=== PATIENT | female | born 1975 | race Caucasian/White ===

== ENCOUNTER 2018-06-09 07:26 | Day surgery (SDC) | payer OTHER ==
[~2018-06-09] VITALS: Ht 160 cm; Wt 64.0 kg
[~2018-06-09 07:26] MED LIST: ALBUTEROL SULF8.5 GM INH; CELEXA40 MG PO; CIPRO500 MG PO; DETROL LA4 MG PO; ESTRACE1 MG PO; FLUTICASONE PRO16 GM NASAL; HCTZ25 MG PO; HYDROCODON-ACE1 EAC7 PO; NEURONTIN 300300 MG; PHENERGAN25 M1 PO; POTASSIUM CHLORIDE E PO; PROTONIX40 MG PO; SINGULAIR10 MG PO; SPIRIVA RESPIMAT4 G1 INH; SYMBICORT 16010.2 GM INH
[2018-06-09 07:59] LABS: CALC OSMOLALITY 280 mosm/kg (275-300); CALCIUM 8.6 mg/dL (8.5-10.1); CARBON DIOXIDE 27.7 mmol/L (21.0-32.0); CHLORIDE - SERUM 101 mmol/L (98-107); CREATININE - SERUM 0.7 mg/dL (0.6-1.3); GLUCOSE 108 mg/dL (74-106); POTASSIUM - SERUM 3.7 mmol/L (3.5-5.1); SODIUM 138 mmol/L (136-145); UREA NITROGEN 23 mg/dL (7-18); eGFR NON AFRICAN AMERICAN > 90 mL/min (90-120)
[2018-06-09 08:30] VITALS: BP 112/76; Ht 160 cm; Wt 64.0 kg
[2018-06-09 08:34] LABS: APPEARANCE HAZY (CLEAR); BILIRUBIN NEGATIVE (NEGATIVE); COLOR YELLOW (YELLOW); GLUCOSE NEGATIVE (NEGATIVE); KETONE NEGATIVE (NEGATIVE); NITRITE NEGATIVE (NEGATIVE); PROTEIN NEGATIVE (NEGATIVE); SPECIFIC GRAVITY 1.015 (1.005-1.020)
[2018-06-09 08:37] LABS: HEMATOCRIT 44.8 % (36.0-48.0); HEMOGLOBIN 15.8 g/dL (12-16); MCH 32.6 pg (26.0-34.0); MCHC 35.3 g/dL (31.0-37.0); MCV 92.4 fL (80.0-100.0); MEAN PLATELET VOLUME 10.8 fL (7.4-10.4); RBC 4.85 10x6/uL (4.00-5.40); RDW 12.9 % (11.5-14.5); WBC 6.9 10x3/uL (4.8-10.8)
--- NOTE | 2018-06-09 13:16 | NUR ---
DC INSTRUCTIONS GIVEN TO PT/FAMILY. STATE UNDERSTANDING. DC'D IV CATH FULLY INTACT. PT LEFT UNIT VIA WC AT 1233
--- NOTE | 2018-06-23 08:45 | OP ---
PATIENT NAME: YONI HERNANDEZ MEDICAL RECORD: [id number] :79 LOCATION:[facility] ADMISSION DATE: SURGEON: MAUDE VAUGHAN MD DATE OF OPERATION: 06/09/2018 PREOPERATIVE DIAGNOSIS: Displaced nasal fracture. POSTOPERATIVE DIAGNOSIS: Displaced nasal fracture. PROCEDURE: Closed reduction of nasal fracture. SURGEON: Maude Vaughan MD ANESTHESIA: General. SPLINTS: Bryant splint externally. NASAL PACKING: None. COMPLICATIONS: None. DISPOSITION: Recovery stable. PROCEDURE NOTE: She was brought to the operating room and placed in supine position, sedated by anesthesia. She had been decongested with Afrin preoperatively. Using a headlight and nasal speculum, both sides of the nose were examined. Septum was relatively straight. No hematoma. The nose was fractured and deviated to the left with a Schuyler elevator on the right side and digital pressure on the left side. The fracture was reduced, this brought the nasal dorsum to the midline, it was palpated carefully, it was nice and symmetric, fairly stable. The nose was again examined. Inferior turbinates were outfractured. The nasal cavity was clear with suction, very minimal bleeding. The skin was cleaned with alcohol. Mastisol and Steri-Strips were applied. A Darke splint was cut to size and placed. She was awakened and transported to recovery in good condition. No complications. TRANSINT:[id number] Voice Confirmation ID: [id number] DOCUMENT ID: [id number] MAUDE VAUGHAN MD at 0845 CC: [id number] DICTATION DATE: 06/09/18 1105 [employer] CLE[employer]ER: 06/09/18 1157 [facility] 06/09/[address] [id number]
--- NOTE | 2018-06-23 08:45 | HP ---
PATIENT: YONI HERNANDEZ MEDICAL RECORD: [id number] ACCOUNT: [id number] LOCATION:[facility] : 79 ADMISSION DATE: 06/09/18 PCP: ELÍAS FRANKEL MD HISTORY AND PHYSICAL EXAMINATION HISTORY: Yoni is 42 years old. She suffered displaced nasal fracture about 9 days ago. She is being admitted for closed reduction of nasal fracture. PAST MEDICAL HISTORY: Includes hypertension and reactive airway disease. PAST SURGICAL HISTORY: Includes appendectomy and hysterectomy. CURRENT MEDICATIONS: Include Protonix, Singulair, Detrol, gabapentin, citalopram, Symbicort, Spiriva, estradiol, promethazine, and hydrocodone. ALLERGIES: No known drug allergies. PHYSICAL EXAMINATION: GENERAL: She is healthy appearing and developmentally normal. FACE: She has bilateral infraorbital ecchymosis. She has a C-shaped deformity of the nasal dorsum. EYES: Sclerae and conjunctivae are normal. EARS: Canals and TMs are normal. NOSE: She had obvious fracture with displacement of the nasal dorsum to the left. ORAL CAVITY AND OROPHARYNX: Tongue protrudes in the midline. Pharynx is normal. NECK: No masses. No adenopathy. CHEST: Clear. CARDIOVASCULAR: Regular rate and rhythm. No murmur. EXTREMITIES: Normal. IMPRESSION: Displaced nasal fracture. PLAN: Closed reduction of nasal fracture. TRANSINT:[id number] Voice Confirmation ID: [id number] DOCUMENT ID: [id number] MAUDE GUEVARA MD at 0845 CC: [id number] DICTATION DATE: 06/08/18 1450 [employer] SERVIC[employer] SPECIALIST: 06/08/[address] [facility] 06/09/[address] [address]
== END 2018-06-09 12:33 | disposition home or self-care (01) ==
LOC: D.OPS 07:26 → D.PAN 10:30 → D.OPS 10:30
PROVIDERS: Anesthesiology
DX: S02.2XXA Fracture of nasal bones, initial encounter for closed fracture (principal); Z01.812 Encounter for preprocedural laboratory examination; I10 Essential (primary) hypertension